=== PATIENT | male | born 1940 | race Caucasian/White ===

== ENCOUNTER 2021-10-13 03:33 | Emergency (ER) | payer MEDICARE, BC ==
[~2021-10-13] VITALS: Ht 177.8 cm; Wt 83.5 kg
[2021-10-13] MEDS ORDERED: TAMS.4ER PO (03:58)
[2021-10-13] MEDS ORDERED: FINA5 PO (03:59)
[2021-10-13] MEDS ORDERED: ELIQUIS2.5 MG PO (04:00)
[2021-10-13] MEDS ORDERED: LEVEMIR FL100 UNIT/2 (04:02)
[2021-10-13] MEDS ORDERED: HUMALOG100 UNIT/1 (04:03)
[2021-10-13 05:46] LABS: Source, Urine Clean Catch
[2021-10-13 06:01] LABS: Appearance, Urine Clear (Clear); Bilirubin, Urine Neg (Neg); Blood, Urine 3+ (Neg); Color, Urine Yellow (P-Yellow); Glucose Qualitative, Urine Neg (Neg); Ketones, Urine Neg (Neg); Leukocyte Esterase, Urine Neg (Neg); Nitrite, Urine Neg (Neg); Protein, Urine 3+ (Neg); Urobilinogen, Urine NORM (Normal)
[2021-10-13 06:10] LABS: Bacteria Rare /hpf; Granular Casts 0-2 /lpf (0); Red Blood Cells, Urine 0-2 /hpf (0-2); Squamous Epithelial Cells Not Seen /hpf (Few); White Blood Cells, Urine 0-2 /hpf (0-5)
[2021-10-13] MEDS ORDERED: Pyridium100 MG PO (06:28)
== END 2021-10-13 06:43 | disposition home or self-care (01) ==
LOC: ER 03:33
PROVIDERS: Emergency Medicine
DX: N40.1 Benign prostatic hyperplasia with lower urinary tract symptoms (principal); R35.0 Frequency of micturition; E11.9 Type 2 diabetes mellitus without complications; I48.91 Unspecified atrial fibrillation; Z79.4 Long term (current) use of insulin; Z79.01 Long term (current) use of anticoagulants; Z91.041 Radiographic dye allergy status; Z90.5 Acquired absence of kidney
CPT/HCPCS: 81001